=== PATIENT | female | born 1985 | race Caucasian/White ===

== ENCOUNTER 2017-01-17 10:07 | Emergency (ER) | payer BC, OTHER ==
--- NOTE | 2017-01-17 12:32 | UC ---
Lower Extremity/Ankle HPI - HPI Summary HPI Summary: PT ROLLED ANKLE LAST NIGHT. PT C/O PAIN, SWELLING. HAS BEEN ABLE TO BEAR WEIGHT BUT ONLY WITH GREAT PAIN. PAIN 2/10 WHEN IN A CHAIR. SEVERE WITH MOVEMENT OR ATTEMPTING TO BEAR WEIGHT. - History of Current Complaint Chief Complaint: UCLowerExtremity Stated Complaint: LEFT ANKLE INJURY Time Seen by Provider: 01/17/17 12:14 Hx Obtained From: Patient Hx Last Menstrual Period: 12/24/16 ?: No Onset/Duration: Sudden Onset, Lasting Days, Still Present Severity Initially: Moderate Severity Currently: Moderate Aggravating Factor(s): Standing, Ambulation, Other - OTHER Alleviating Factor(s): Rest, Elevation, Ice - Risk Factors Gout Risk Factors: Negative DVT Risk Factors: Negative Septic Arthritis Risk Factor: Negative - Allergies/Home Medications Allergies/Adverse Reactions: Allergies Allergy/AdvReac Type Severity Reaction Status Date / Time No Known Allergies Allergy Verified 01/17/17 12:11 Home Medications: Home Medications Ibuprofen TAB* [Advil TAB*] 600 mg PO Q6H PRN 01/17/17 [History Confirmed ] PMH/Surg Hx/FS Hx/Imm Hx Previously Healthy: Yes - Surgical History Surgical History: Yes Surgery Procedure, Year, and Place: C-Sections, 2013 2015, [place], [place] - Family History Known Family History: Positive: Hypertension, Other - CANCER - Social History Lives: With Family Alcohol Use: Weekly Substance Use Type: Marijuana Substance Use Comment - Amount & Last Used: Occasionally Smoking Status (MU): Current Some Day Smoker Amount Used/How Often: when drinking alcohol Cessation Counseling: Patient Advised to Stop - Immunization History Most Recent Influenza Vaccination: Not the Season Review of Systems Constitutional: Negative Skin: Negative Respiratory: Negative Cardiovascular: Negative Gastrointestinal: Negative Neurovascular: Negative Musculoskeletal: Arthralgia Neurological: Negative All Other Systems Reviewed And Are Negative: Yes Physical Exam Triage Information Reviewed: Yes Appearance: Well-Appearing, No Pain Distress, Well-Nourished Vital Signs: Initial Vital Signs Temp 98.3 F 01/17/17 12:09 Pulse 88 01/17/17 12:09 Resp 16 01/17/17 12:09 BP 128/87 01/17/17 12:09 Pulse Ox 100 01/17/17 12:09 Vital Signs Reviewed: Yes Eyes: Positive: Conjunctiva Clear. Negative: Discharge ENT: Positive: Hearing grossly normal. Negative: Muffled voice, Hoarse voice Neck: Positive: Supple Respiratory: Positive: Lungs clear, Normal breath sounds, No respiratory distress, No accessory muscle use Cardiovascular: Positive: RRR, No Murmur Lower Extremity Course/Dx - Differential Dx/Diagnosis Differential Diagnosis/HQI/PQRI: Contusion, Fracture (Closed), Sprain, Strain Provider Diagnoses: ANKLE SPRAIN Discharge - Discharge Plan Condition: Stable Disposition: HOME Patient Education Materials: Ankle Sprain (ED), Ankle Stirrup Splint (ED), Crutch Instructions (ED) Referrals: Fransisco Hartman MD [Medical Doctor] - (FOLLOW UP IN 5-7 DAYS FOR RE- EVALUATION IF NOT IMPROVING. DISCUSSED, THERE IS ALWAYS THE POSSIBILITY OF HIDDEN FRACTURE.) Additional Instructions: GIVEN YOUR STATED TENDENCY TO ROLL THIS SAME ANKLE REPEATEDLY SINCE THE FIRST TIME YOU SPRAINED IT, WE HAVE GIVEN YOU A REFERRAL TO PHYSICAL THERAPY FOR WHEN YOUR CURRENT ANKLE SPRAIN HAS HEALED. YOU WOULD LIKELY BENEFIT FROM OSTEOPATHIC MANIPULATION. WE RECOMMEND THAT YOU FIND AN OSTEOPATHIC PHYSICIAN IN YOUR AREA WHO DOES LYMPHATIC, MYOFACIAL AND VISCERAL WORK
--- NOTE | 2017-01-17 12:58 | RAD ---
INDICATION: Left ankle injury. TECHNIQUE: 3 views of the left ankle were obtained. FINDINGS: Soft tissue swelling is noted along the anterolateral aspect of the ankle. No fracture is seen. Joint spaces appear maintained. IMPRESSION: SOFT TISSUE SWELLING, NO FRACTURE IS SEEN.
== END 2017-01-17 13:42 | disposition home or self-care (01) ==
LOC: UCCORT 10:07
DX: S93.402A Sprain of unspecified ligament of left ankle, initial encounter (principal); X58.XXXA Exposure to other specified factors, initial encounter; Y93.9 Activity, unspecified; Y92.9 Unspecified place or not applicable; Z72.0 Tobacco use
CPT/HCPCS: 99203; G0463